=== PATIENT | female | born 1975 | race Two or more races ===

== ENCOUNTER 2024-12-27 18:12 | Emergency (ER) | payer OTHER ==
[~2024-12-27] VITALS: Ht 175.3 cm; Wt 108.9 kg
[2024-12-27] MEDS ORDERED: 0.9 % SODIUM CHLORIDE 1,000 ML IV ONE (19:15)
[2024-12-27] MEDS ORDERED: FAMOtidine 10 MG/ML (4ML VIAL) IV ONE (19:15)
[2024-12-27] MEDS ORDERED: ONDANSETRON HCL 2 MG/ML VIAL IV ONE (19:15)
[2024-12-27] MEDS ORDERED: FAMOTIDINE/PF 20 MG/2 ML VIAL ONE (20:04)
[2024-12-27] MEDS ORDERED: ONDANSETRON HCL 2 MG/ML VIAL ONE (20:04)
[2024-12-27 20:42] LABS: BASO % 0.2 % (0.1-1.2); EOS # 0.11 (0.04-0.54); EOS % 1.1 % (0.7-7.0); LYMPH # 0.51 (1.18-3.74); LYMPH % 4.9 % (19.3-53.1); MEAN PLATELET VOLUME 12.10 fl (9.4-12.4); MONO # 0.44 (0.24-0.82); MONO % 4.2 % (4.7-12.5); NEUT # 9.35 (1.56-6.13); NEUT % 89.4 % (34.0-71.1); RED CELL DISTRIBUTION WIDTH 13.5 % (11.6-14.4)
[2024-12-27 21:00] LABS: COVID-19 AG NEGATIVE (NEGATIVE)
[2024-12-27 21:07] LABS: ALT/SGPT 35.0 U/L (12-78); AST/SGOT 24.0 U/L (15-37); BILIRUBIN TOTAL 0.42 mg/dL (0.3-1.2); BILIRUBIN,CONJUGATED 0.14 mg/dL (0.0-0.2); BUN CREA RATIO 13.0 (7.0-25.0); CREATININE SERUM 0.84 mg/dL (0.55-1.02); GFR 71.77; GLOBULINA 4.4 G/DL (2.4-3.5); GLUCOSE FASTING 125.0 mg/dL (65-100); OSMOLALITY SERUM 284.0 MOSM/KG (275-295)
[2024-12-27] MEDS ORDERED: ZOFRAN8 MG PO (22:40)
[2024-12-27] MEDS ORDERED: PEPCID AC20 MG PO (22:40)
== END 2024-12-28 01:13 | disposition home or self-care (01) ==
LOC: ER 18:13
PROVIDERS: General Practice
DX: R11.10 Vomiting, unspecified (principal); R19.7 Diarrhea, unspecified; Z20.822 Contact with and (suspected) exposure to COVID-19; I10 Essential (primary) hypertension